=== PATIENT | male | born 1995 | race Two or more races ===

== ENCOUNTER 2018-05-27 13:02 | Emergency (ER) | payer BC ==
--- NOTE | 2018-05-27 13:28 | EDM.PDOC ---
ED HPI GENERAL MEDICAL PROBLEM - General Chief Complaint: Abdominal Pain Stated Complaint: ABDOMINAL PAIN, VOMITING Time Seen by Provider: 05/27/18 13:16 Source of Information: Reports: Patient History Limitations: Reports: No Limitations - History of Present Illness INITIAL COMMENTS - FREE TEXT/NARRATIVE: HISTORY AND PHYSICAL: History of present illness: Patient is a 22-year-old male who presents to the emergency room with complaints of epigastric pain, nausea, vomiting 2 days. He states yesterday he had noted some blood in his vomit but today this has resolved and his vomit appears to be foamy/froathy. He does have epigastric pain that occasionally radiates to the right chest. Denies any fever, chills, cough, shortness of breath. Denies any diarrhea, constipation or dysuria. No blood or dark tarry stools noted. Review of systems: As per history of present illness and below otherwise all systems reviewed and negative. Past medical history: As per history of present illness and as reviewed below otherwise noncontributory. Surgical history: As per history of present illness and as reviewed below otherwise noncontributory. Social history: No reported history of drug or alcohol abuse. Family history: As per history of present illness and as reviewed below otherwise noncontributory. Physical exam: General: Well-developed and well-nourished 22-year-old male. Alert and oriented. Nontoxic appearing and in no acute distress. HEENT: Atraumatic, normocephalic, pupils equal and reactive bilaterally, negative for conjunctival pallor or scleral icterus, mucous membranes moist, throat clear, neck supple, nontender, trachea midline. No drooling or trismus noted. No meningeal signs Lungs: Clear to auscultation, breath sounds equal bilaterally, chest nontender. Heart: S1S2, regular rate and rhythm without overt murmur Abdomen: Soft, nondistended, nontender. Negative for masses or hepatosplenomegaly. Negative for costovertebral tenderness. Pelvis: Stable nontender. Genitourinary: Deferred. Rectal: Deferred. Skin: Intact, warm, dry. No lesions or rashes noted. Extremities: Atraumatic, negative for cords or calf pain. Neurovascular unremarkable. Neuro: Awake, alert, oriented. Cranial nerves II through XII unremarkable. Cerebellum unremarkable. Motor and sensory unremarkable throughout. Exam nonfocal. Notes: Lab work is unremarkable. CT shows no acute disease in the abdomen or pelvis. There may be some mild thickening which could represent a small hiatal hernia. Her home and encouraged him to follow-up with the general surgeon as he may need further evaluation of his symptoms. He voices understanding and is agreeable to plan of care and denies any questions at this time. Diagnostics: CBC, CMP, amylase, lipase, UA, H pylori, CT abdomen and pelvis Therapeutics: IV fluid, famotidine, Zofran, Toradol, GI cocktail Prescription: Zofran Impression: Epigastric pain Nausea and Vomiting Plan: 1. Small frequent sips of fluids to prevent dehydration. Advance your diet as tolerated. Whitman diet for the next 24-48 hours. 2. Use the Zofran as directed. 3. Follow up with the General Surgeon next week. Call Tuesday to set up an appointment. Return to the ED as needed and as discussed. Definitive disposition and diagnosis as appropriate pending reevaluation and review of above. Middle Abdominal Pain Score (Numeric/FACES): 8 - Related Data Allergies Allergy/AdvReac Type Severity Reaction Status Date / Time No Known Allergies Allergy Verified 05/27/18 13:24 Home Meds: Home Meds . [No Known Home Meds] 05/27/18 [History] Past Medical History - Past Health History Medical/Surgical History: Denies Medical/Surgical History Social & Family History - Family History Family Medical History: Noncontributory - Tobacco Use Smoking Status *Q: Never Smoker - Caffeine Use Caffeine Use: Reports: Energy Drinks - Recreational Drug Use Recreational Drug Use: Yes Recreational Drug Type: Reports: Marijuana/Hashish Other Recreational Drug Type: very rare occasional ED ROS GENERAL - Review of Systems Review Of Systems: ROS reveals no pertinent complaints other than HPI. ED EXAM, GI/ABD - Physical Exam Exam: See Below (See dictation) Course - Vital Signs Last Recorded V/S: Last Vital Signs Temp 98.1 F 05/27/18 13:20 Pulse 91 05/27/18 13:20 Resp 18 05/27/18 13:20 BP 125/80 05/27/18 13:20 Pulse Ox 98 05/27/18 13:20 - Orders/Labs/Meds Orders: Active Orders 24 hr Category Date Time Status Abdomen Pelvis w Cont [CT] Stat Exams 05/27/18 13:29 Taken UA W/MICROSCOPIC [URIN] Stat Lab 05/27/18 13:29 Ordered Labs: Laboratory Tests 05/27/18 05/27/18 05/27/18 Range/Units 13:26 13:26 13:29 WBC 7.05 (4.0-11.0) K/uL RBC 4.89 (4.50-5.90) M/uL Hgb 15.5 (13.0-17.0) g/dL Hct 44.2 (38.0-50.0) % MCV 90.4 (80.0-98.0) fL MCH 31.7 (27.0-32.0) pg MCHC 35.1 (31.0-37.0) g/dL RDW Std Deviation 41.3 (28.0-62.0) fl RDW Coeff of [place]ul[place] 13 (11.0-15.0) % Plt Count 156 (150-400) K/uL MPV 9.80 (7.40-12.00) fL Neut % (Auto) 66.1 (48.0-80.0) % Lymph % (Auto) 24.3 (16.0-40.0) % [place] % (Auto) 8.2 (0.0-15.0) % Eos % (Auto) 1.1 (0.0-7.0) % Baso % (Auto) 0.3 (0.0-1.5) % Neut # (Auto) 4.7 (1.4-5.7) K/uL Lymph # (Auto) 1.7 (0.6-2.4) K/uL [place] # (Auto) 0.6 (0.0-0.8) K/uL Eos # (Auto) 0.1 (0.0-0.7) K/uL Baso # (Auto) 0.0 (0.0-0.1) K/uL Nucleated RBC % 0.0 /100WBC Nucleated RBCs # 0 K/uL Sodium 139 (136-148) mmol/L Potassium 3.5 (3.5-5.1) mmol/L Chloride 102 (98-107) mmol/L Carbon Dioxide 31.3 (21.0-32.0) mmol/L BUN 17 (7.0-18.0) mg/dL Creatinine 1.3 (0.8-1.3) mg/dL Est Cr Clr Drug Dosing 87.62 mL/min Estimated GFR (MDRD) > 60.0 ml/min Glucose 110 H (74-106) mg/dL Calcium 9.3 (8.5-10.1) mg/dL Total Bilirubin 0.8 (0.2-1.0) mg/dL AST 12 L (15-37) IU/L ALT 16 (14-63) IU/L Alkaline Phosphatase 77 (46-116) U/L Total Protein 8.5 H (6.4-8.2) g/dL Albumin 4.3 (3.4-5.0) g/dL Globulin 4.2 H (2.0-3.5) g/dL Albumin/Globulin Ratio 1.0 L (1.3-2.8) Amylase 51 (25-115) U/L Lipase 121 (73-393) U/L H. pylori IgG Antibody NEGATIVE (NEG) Meds: Medications Discontinued Medications Generic Name Dose Route Start Last Admin Trade Name Freq PRN Reason Stop Dose Admin Al Hydroxide/Mg Hydroxide 15 0 ml 05/27/18 13:33 05/27/18 13:53 ml/ Metoclopramide HCl 5 mg/ PO 05/27/18 13:34 1 each Lidocaine HCl 5 ml ONETIME ONE Administration Famotidine 20 mg 05/27/18 13:33 05/27/18 13:58 Pepcid IVPUSH 05/27/18 13:34 20 mg ONETIME ONE Administration Sodium Chloride 1,000 mls @ 999 mls/hr 05/27/18 13:29 05/27/18 13:53 Normal Saline IV 05/27/18 14:29 999 mls/hr STAT ONE Administration Iopamidol 100 ml 05/27/18 14:40 05/27/18 14:41 Isovue Multipack-370 (76%) IVPUSH 05/27/18 14:41 100 ml ONETIME STA Administration Ketorolac Tromethamine 30 mg 05/27/18 13:29 05/27/18 13:53 Toradol IVPUSH 05/27/18 13:30 30 mg ONETIME ONE Administration Ondansetron HCl 4 mg 05/27/18 13:29 05/27/18 13:54 Zofran IVPUSH 05/27/18 13:30 4 mg ONETIME ONE Administration Departure - Departure Time of Disposition: 15:22 Disposition: Home, Self-Care 01 Clinical Impression: Epigastric pain Nausea and vomiting Qualifiers: Vomiting type: unspecified Vomiting Intractability: non-intractable Qualified Code(s): R11.2 - Nausea with vomiting, unspecified - Discharge Information Instructions: Nausea and Vomiting, Adult, [id number] Referrals: PCP,None [Primary Care Provider] - Forms: ED Department Discharge Additional Instructions: The following information is given to patients seen in the emergency department who are being discharged to home. This information is to outline your options for follow-up care. We provide all patients seen in our emergency department with a follow-up referral. The need for follow-up, as well as the timing and circumstances, are variable depending upon the specifics of your emergency department visit. If you don't have a primary care physician on staff, we will provide you with a referral. We always advise you to contact your personal physician following an emergency department visit to inform them of the circumstance of the visit and for follow-up with them and/or the need for any referrals to a consulting specialist. The emergency department will also refer you to a specialist when appropriate. This referral assures that you have the opportunity for follow-up care with a specialist. All of these measure are taken in an effort to provide you with optimal care, which includes your follow-up. Under all circumstances we always encourage you to contact your private physician who remains a resource for coordinating your care. When calling for follow-up care, please make the office aware that this follow-up is from your recent emergency room visit. If for any reason you are refused follow-up, please contact the [facility] Emergency Department at and asked to speak to the emergency department charge nurse. [facility] [address] [place] [id number] [facility] Specialty Care - General Surgery Professional Building [address] [place] [address], [address] [place] [address] 1. Small frequent sips of fluids to prevent dehydration. Advance your diet as tolerated. Whitman diet for the next 24-48 hours. 2. Use the Zofran as directed. 3. Follow up with the General Surgeon next week. Call Tuesday to set up an appointment. Return to the ED as needed and as discussed. - My Orders Last 24 Hours: My Active Orders 05/27/18 13:29 Abdomen Pelvis w Cont [CT] Stat UA W/MICROSCOPIC [URIN] Stat - Assessment/Plan Last 24 Hours: My Active Orders 05/27/18 13:29 Abdomen Pelvis w Cont [CT] Stat UA W/MICROSCOPIC [URIN] Stat
[2018-05-27] MEDS ORDERED: Ketorolac 30 MG/ML SDV IVPUSH ONE (13:29)
[2018-05-27] MEDS ORDERED: Sodium Chloride 0.9% 1,000 ML IV ONE (13:29)
[2018-05-27] MEDS ORDERED: Ondansetron 4 MG/2 ML SDV IVPUSH ONE (13:29)
[2018-05-27] MEDS ORDERED: Famotidine 20 MG/2 ML SDV IVPUSH ONE (13:33)
[2018-05-27] MEDS ORDERED: Alum Hydrox/Mag Hydrox/Simeth 15 ML, Metoclopramide 5 MG, Lidocaine 2% 5 ML PO ONE ×3 (13:33)
[2018-05-27 13:55] LABS: CHLORIDE,CL 102 mmol/L (98-107); SODIUM,NA 139 mmol/L (136-148)
[2018-05-27] MEDS ORDERED: Iopamidol 755 MG/ML 500 ML Multipack Bottle IVPUSH STA (14:40)
--- NOTE | 2018-05-29 14:29 | CT ---
EXAM DATE: 05/27/18 PATIENT'S AGE: 22 Patient: JOCELYN COFFMAN Facility: [place], [place] Site . Site : 1995 Study: CT Abdomen/Pelvis [id number]/[id number] 2:43:14 PM Ordering Physician: Doctor Medel Final Report: INDICATION: Abdominal/epigastric pain. Bloody emesis. TECHNIQUE: CT of abdomen and pelvis performed after IV injection of 100 mL of Isovue-370. FINDINGS: No reimbursement director view was sent with this exam. Mild elevation left hemidiaphragm. Calcified splenic granulomas. Focal fatty infiltration of the liver. Scattered tiny cysts in the liver. Tiny low-density lesions in the kidneys likely cysts. Small amount of high density in right midkidney medially on images 50-52 could be related to small stones. Etiology for the abdominal pain and bloody emesis is not identified on this study. The wall of the upper stomach is somewhat thickened however this may be related to incomplete distention. The wall of the urinary bladder is mildly thickened. Moderate amount of stool throughout the colon. The appendix is normal. Remainder negative. IMPRESSION: No acute disease in abdomen or pelvis. Not mentioned above is the fact that the wall of the distal esophagus may be mildly thickened above a small hiatal hernia. Foci of high density and right mid kidney could be subtle renal stones. Other findings as above. Please note that all CT scans at this facility use dose modulation, iterative reconstruction, and/or weight-based dosing when appropriate to reduce radiation dose to as low as reasonably achievable. Dictated by Ron Titus MD @ May 27 2018 2:57PM (Electronic Signature) Report Signed by Proxy. IVONNE
== END 2018-05-27 15:30 | disposition home or self-care (01) ==
LOC: MW.ED 13:02
DX: R10.13 Epigastric pain (principal); R11.2 Nausea with vomiting, unspecified
CPT/HCPCS: 36415; 74177; 80053; 82150; 83690; 85025; 86677; 96361; 96374; 96375; 99284; A9270; J1885; J2405; J3490; J7040; Q9967